=== PATIENT | female | born 1995 | race Caucasian/White ===

== ENCOUNTER 2017-07-03 07:37 | Emergency (ER) | payer BC, OTHER ==
--- NOTE | 2017-07-03 08:32 | ED ---
General Adult HPI - General Chief complaint: Vaginal Bleeding Stated complaint: Vaginal Bleeding-poss miscarriage Time Seen by Provider: 07/03/17 08:11 Source: patient, RN notes reviewed Mode of arrival: ambulatory Limitations: no limitations - History of Present Illness Initial comments: Patient 22-year-old female who is G2, P1 presenting to the emergency room with increased heavy vaginal bleeding. Patient states that she was told last week that she was going to be miscarrying. She states bleeding increased last night. She states that over the last hour has had increased bleeding. Patient states she believes she may have passed products of conception at home. She states she was concerned she still having heavy bleeding at this time came to the emergency room. Patient denies any other complaints at this time. Patient denies any recent fever, chills, shortness of breath, chest pain, back pain, nausea or vomiting, numbness or tingling, dysuria or hematuria, constipation or diarrhea, headaches or visual changes, or any other complaints. - Related Data Allergies Allergy/AdvReac Type Severity Reaction Status Date / Time No Known Allergies Allergy Verified 07/03/17 07:44 Review of Systems ROS Statement: Those systems with pertinent positive or pertinent negative responses have been documented in the HPI. ROS Other: All systems not noted in ROS Statement are negative. Past Medical History Past Medical History: No Reported History History of Any Multi-Drug Resistant Organisms: None Reported Past Surgical History: Orthopedic Surgery, Tonsillectomy Additional Past Surgical History / Comment(s): knee surgery Past Psychological History: No Psychological Hx Reported Smoking Status: Current every day smoker Past Alcohol Use History: Rare Past Drug Use History: None Reported General Exam - General Exam Comments Initial Comments: General: The patient is awake and alert, in no distress, and does not appear acutely ill. Eye: Pupils are equal, round and reactive to light, extra-ocular movements are intact. No nystagmus. There is normal conjunctiva bilaterally. No signs of icterus. Ears, nose, mouth and throat: There are moist mucous membranes and no oral lesions. Neck: The neck is supple, there is no tenderness or JVD. Cardiovascular: There is a regular rate and rhythm. No murmur, rub or gallop is appreciated. Respiratory: Lungs are clear to auscultation, respirations are non-labored, breath sounds are equal. No wheezes, stridor, rales, or rhonchi. Gastrointestinal: Soft, non-distended, non-tender abdomen without masses or organomegaly noted. There is no rebound or guarding present. No CVA tenderness. Musculoskeletal: Normal ROM, no tenderness. Strength 5/5. Sensation intact. Pulses equal bilaterally 2+. Neurological: A&O x 3. CN II-XII intact, There are no obvious motor or sensory deficits. Coordination appears grossly intact. Speech is normal. Skin: Skin is warm and dry and no rashes or lesions are noted. Psychiatric: Cooperative, appropriate mood & affect, normal judgment. Limitations: no limitations Course Vital Signs 07/03/17 07:44 Temperature 98.9 F Pulse Rate 114 H Respiratory 18 Rate Blood Pressure 146/73 O2 Sat by Pulse 98 Oximetry Medical Decision Making - Medical Decision Making Patient's labs been reviewed. Patient's Rh+. Hemoglobin stable. Patient does admit that the bleeding has slowed down quite a bit here in the emergency room. Vitals are stable. She is feeling well at this time. Patient's ultrasound of the pelvis does show signs consistent with a active miscarriage. Results were discussed with patient. Patient's beta hCG 1400 today. No comparison in the system. Patient's that bedside stating that previous one last week was greater than 9000. Patient is advised to follow back up with her PENCIL MAKER over the next 2 days. Advised return here to the emergency room if there is increased worsening of symptoms. Vision states understanding and is in agreement. - Lab Data Result diagrams: 07/03/17 08:30 07/03/17 08:30 Lab Results 07/03/17 07/03/17 07/03/17 Range/Units 08:30 08:30 08:30 WBC 11.1 H (3.8-10.6) k/uL RBC 4.86 (3.80-5.40) m/uL Hgb 13.6 (11.4-16.0) gm/dL Hct 38.6 (34.0-46.0) % MCV 79.4 L (80.0-100.0) fL MCH 28.0 (25.0-35.0) pg MCHC 35.3 (31.0-37.0) g/dL RDW 13.6 (11.5-15.5) % Plt Count 249 (150-450) k/uL Neutrophils % 84 % Lymphocytes % 9 % Monocytes % 4 % Eosinophils % 2 % Basophils % 0 % Neutrophils # 9.4 H (1.3-7.7) k/uL Lymphocytes # 1.0 (1.0-4.8) k/uL Monocytes # 0.4 (0-1.0) k/uL Eosinophils # 0.2 (0-0.7) k/uL Basophils # 0.0 (0-0.2) k/uL Sodium 141 (137-145) mmol/L Potassium 4.2 (3.5-5.1) mmol/L Chloride 106 (98-107) mmol/L Carbon Dioxide 20 L (22-30) mmol/L Anion Gap 15 mmol/L BUN 8 (7-17) mg/dL Creatinine 0.59 (0.52-1.04) mg/dL Est GFR (CKD-EPI)AfAm >90 (>60 ml/min/1.73 sqM) Est GFR (CKD-EPI)NonAf >90 (>60 ml/min/1.73 sqM) Glucose 84 (74-99) mg/dL Calcium 9.3 (8.4-10.2) mg/dL Total Bilirubin 0.7 (0.2-1.3) mg/dL AST 16 (14-36) U/L ALT 19 (9-52) U/L Alkaline Phosphatase 67 (38-126) U/L Total Protein 7.0 (6.3-8.2) g/dL Albumin 4.1 (3.5-5.0) g/dL HCG, Quant 1440.5 mIU/mL Blood Type O Positive Blood Type Recheck No Disposition Clinical Impression: Incomplete Disposition: HOME SELF-CARE Condition: Good Instructions: Miscarriage (ED) Additional Instructions: Please follow up with PENCIL MAKER over the next 2 days. Please return here to the emergency room for any symptoms increase worsen or for any other concerns. Is patient prescribed a controlled substance at discharge?: No Referrals: None,Stated [Primary Care Provider] - 1-2 days Azalia Gonzalez NPC [REFERRING] - 1-2 days Time of Disposition: 10:57
[2017-07-03 08:42] LABS: Basophils % (A) 0 %; Eosinophils # (A) 0.2 k/uL (0-0.7); Eosinophils % (A) 2 %; HCT 38.6 % (34.0-46.0); HGB 13.6 gm/dL (11.4-16.0); Lymphocytes % (A) 9 %; MCHC 35.3 g/dL (31.0-37.0); MCV 79.4 fL (80.0-100.0); Mean Platelet Volume 7.4; Monocytes # (A) 0.4 k/uL (0-1.0); Monocytes % (A) 4 %; Neutrophils # (A) 9.4 k/uL (1.3-7.7); Neutrophils % (A) 84 %; Platelet Count 249 k/uL (150-450); RBC 4.86 m/uL (3.80-5.40); RDW 13.6 % (11.5-15.5); WBC 11.1 k/uL (3.8-10.6)
[2017-07-03 08:57] LABS: ALT 19 U/L (9-52); AST 16 U/L (14-36); Albumin 4.1 g/dL (3.5-5.0); Alkaline Phosphatase 67 U/L (38-126); Anion Gap 15 mmol/L; Blood Urea Nitrogen 8 mg/dL (7-17); Calcium 9.3 mg/dL (8.4-10.2); Carbon Dioxide 20 mmol/L (22-30); Chloride 106 mmol/L (98-107); Glucose 84 mg/dL (74-99); Potassium 4.2 mmol/L (3.5-5.1); Sodium 141 mmol/L (137-145); Total Bilirubin 0.7 mg/dL (0.2-1.3)
[2017-07-03 09:14] LABS: HCG,Quantitative Serum 1440.5 mIU/mL
--- NOTE | 2017-07-03 10:04 | US ---
EXAMINATION TYPE: Transabdominal DATE OF EXAM: 06/18/17 COMPARISON: NONE CLINICAL HISTORY: 22-year-old female Pain. Passing clots. Heavy bleeding started this morning. Jessy ent states having an Ultrasound last week with neg FHT's and was measuring around 8 weeks. Patient ates she is in the process of miscarrying. EXAM PERFORMED: Transabdominal (TA) FINDINGS: EXAM MEASUREMENTS: GESTATIONAL AGE / DATING Dates by LMP: (11 weeks/0 days) EDC: 01/22/2018 Dates by Current Scan for: No IUP seen at this time MATERNAL ANATOMY Uterus: 10.9 x 6.7 x 5.1 cm Right Ovary: 3.7 x 2.2 x 1.7 cm Left Ovary: 3.4 x 2.8 x 1.9 cm Post CDS / Adnexa: no free fluid Presence of free fluid: no Presence of corpus luteal cyst: no GESTATION / SURVEY IUP: No IUP seen at this time Date of LMP: 04/17/2017, Beta HcG (if available): Not available at this time [employer] Mechanical Engineer notes: No GS, YS or CRL seen. Endometrium appears thickened and heterogenous with fluid s een within the cavity extending into the cervix. Echogenic material seen within. IMPRESSION: Heterogeneous material and fluid in the uterine cavity extending into the cervix. Findings suggest ab ortion in progress. No intrauterine seen.
[2017-07-03 10:58] LABS: Appearance,Urine Cloudy (Clear); Bilirubin,Urine Negative (Negative); Blood,Urine Large (Negative); Color,Urine Light Red; Glucose,Urine (UA) Negative (Negative); Ketones,Urine Negative (Negative); Leukocyte Esterase,Urine Small (Negative); Mucus,Urine Few /hpf; Nitrite,Urine Negative (Negative); PH, Urine 5.5 (5.0-8.0); Protein,Urine 1+ (Negative); RBC,Urine >182 /hpf (0-5); Specific Gravity,Urine 1.015 (1.001-1.035); Squamous Epithelial Cell,Urine 1 /hpf (0-4); Urobilinogen,Urine <2.0 mg/dL (<2.0); WBC,Urine 57 /hpf (0-5)
[2017-07-03 11:14] VITALS: BP 135/72; PULSE 79; RESP 17; TEMP 98.7
== END 2017-07-03 11:13 | disposition home or self-care (01) ==
LOC: EC 07:37
DX: O03.4 Incomplete spontaneous abortion without complication (principal); O99.330 Smoking (tobacco) complicating pregnancy, unspecified trimester; F17.200 Nicotine dependence, unspecified, uncomplicated; Z67.90 Unspecified blood type, Rh positive; Z3A.00 Weeks of gestation of pregnancy not specified
CPT/HCPCS: 36415; 76801; 80053; 81001; 84702; 85025; 86900; 86901; 99284

== ENCOUNTER 2021-05-31 14:13 | Emergency (ER) | payer BC, OTHER ==
[2021-05-31 14:17] VITALS: BP 133/84; PULSE 91; RESP 18; TEMP 98.1
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
== END 2021-05-31 14:39 | disposition home or self-care (01) ==
LOC: EC 14:13
DX: S50.01XA Contusion of right elbow, initial encounter (principal); V43.62XA Car passenger injured in collision with other type car in traffic accident, initial encounter; Y92.410 Unspecified street and highway as the place of occurrence of the external cause
CPT/HCPCS: 99284